=== PATIENT | male | born 1935 | race Hispanic/Latino ===

== ENCOUNTER 2017-11-02 03:25 | Emergency (ER) | payer MEDICARE ==
[~2017-11-02 03:25] MED LIST: ASPI-1197 PO; CLOP75TA14 PO; LISI10TA7 PO; MELO-106 PO
[2017-11-02] MEDS ORDERED: OCTYL 2-CYANOACRYLATE 1 EACH TP ONE (04:24)
== END 2017-11-02 05:18 | disposition home or self-care (01) ==
LOC: EDH 03:25
DX: S60.222A Contusion of left hand, initial encounter (principal); S50.311A Abrasion of right elbow, initial encounter; I10 Essential (primary) hypertension; Z86.718 Personal history of other venous thrombosis and embolism; Z79.01 Long term (current) use of anticoagulants; W18.39XA Other fall on same level, initial encounter; Y93.01 Activity, walking, marching and hiking; Y92.89 Other specified places as the place of occurrence of the external cause; Y99.8 Other external cause status
CPT/HCPCS: 73130

== ENCOUNTER → 2020-06-27 | Outpatient (CLI) | payer MEDICARE | END | disposition home or self-care (01) | LOC: SHCH 10:51 | PROVIDERS: ATTEND Internal Medicine Cardiovascular Disease | DX: I65.23 Occlusion and stenosis of bilateral carotid arteries (principal) | CPT/HCPCS: 93880 ==

== ENCOUNTER → 2025-01-14 | Outpatient (CLI) | payer MEDICARE ==
[~2025-01-14] MED LIST changes: +BRIM5DRO5 OP; +CETI10TA57 PO; +CLOP-31 PO; -CLOP75TA14 PO; +KETO5DRO40 OD; +LEVO50TA11 PO; +LISI10TA24 PO; -LISI10TA7 PO; +LISI5TAB21 PO; +ROSU10TA72 PO; +TIMO5SOL10 OP; +[UNRECOGNIZED DRUG - CODE] PO
[2025-01-14 15:48] LABS: CREATININE 1.2 mg/dL (0.5-1.3); POTASSIUM 4.5 mmol/L (3.5-5.1)
== END | disposition home or self-care (01) ==
LOC: LAB 15:09
PROVIDERS: ATTEND Internal Medicine Cardiovascular Disease
DX: I10 Essential (primary) hypertension (principal)
CPT/HCPCS: 36415; 80048